=== PATIENT | female | born 2000 | race Caucasian/White ===

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

== ENCOUNTER → 2020-04-07 | Outpatient (CLI) | payer OTHER ==
--- NOTE | 2020-04-07 16:18 | RAD ---
Transabdominal and endovaginal pelvic ultrasound INDICATION: Pelvic pain for one month. LMP 03/10/2020. 19-year-old G0 TECHNIQUE: Grayscale, color and spectral Doppler imaging of the pelvic contents was performed transab dominally and endovaginally. FINDINGS: Uterus measures 6.6 x 5.2 x 3.9 cm. The endometrium measures 3 mm. The right ovary measures 3.3 x 2.0 x 1.8 cm. Normal blood flow. The left ovary measures 2.2 x 2.3 x 1.0 cm, with normal blood flow. A small amount of free fluid is present in the left adnexa. IMPRESSION: Pelvic ultrasound within normal limits. Electronically signed by: Betzaida Funes MD (04/07/2020 4:15 PM) [id number]
--- NOTE | 2020-04-07 16:20 | RAD ---
EXAM: ABDOMINAL ULTRASOUND. HISTORY: Right upper quadrant abdominal pain. History of Crohn's disease. COMPARISON: None. FINDINGS: Sonographic evaluation of the abdomen was performed. The liver appears normal in parenchymal echotexture. Measures 15 cm in length. There are no focal les ions. The spleen measures 9.8 cm. The gallbladder is unremarkable without evidence of stones, wall thickening or pericholecystic fluid. There is no sonographic Burton sign. The common duct measures 2 mm. The visualized portions of the h ead of the pancreas reveal no abnormality. The right kidney measures 9.1 x 5.1 x 3.7 cm. Cortical thickness and echogenicity are preserved. Ther e is no hydronephrosis. The left kidney measures 9.2 x 3.8 x 3.5 cm. Cortical thickness and echogenic ity are preserved. There is no hydronephrosis. The visualized portions of the abdominal aorta and inferior vena cava are grossly patent and normal i n caliber. IMPRESSION: 1. Unremarkable examination of the abdomen. Electronically signed by: Betzaida Funes MD (04/07/2020 4:18 PM) [id number]
== END ==
LOC: US 09:10
PROVIDERS: ATTEND Pediatrics
DX: K50.90 Crohn's disease, unspecified, without complications (principal); R10.2 Pelvic and perineal pain; R10.11 Right upper quadrant pain
CPT/HCPCS: 76700; 76830; 76856

== ENCOUNTER → 2020-05-03 | Outpatient (CLI) | payer OTHER ==
[2020-05-03 13:44] LABS: BASO % 1 % (0-3); EOS # 0.1 x10^3/uL (0.0-0.7); EOS % 1 % (0-3); HEMATOCRIT 37.5 % (36.0-47.0); HEMOGLOBIN 11.8 g/dL (12.0-15.5); LYMPH % 35 % (24-48); MEAN CORPUSCULAR HEMOGLOBIN 24 pg (25-35); MEAN CORPUSCULAR HGB CONC 32 g/dL (31-37); MEAN CORPUSCULAR VOLUME 76 fL (79-100); MONO # 0.6 x10^3/uL (0.0-1.1); MONO % 8 % (0-9); NEUT # 4.8 x10^3uL (1.8-7.7); NEUT % 56 % (31-73); PLATELET COUNT 275 x10^3/uL (140-400); RED BLOOD COUNT 4.93 x10^6/uL (3.50-5.40); WHITE BLOOD COUNT 8.5 x10^3/uL (4.0-11.0)
[2020-05-03 13:53] LABS: HEMOGLOBIN ISTAT 12.6 gm/dL
[2020-05-03 14:03] LABS: ALBUMIN 2.9 g/dL (3.4-5.0); C REACTIVE PROTEIN 6.3 mg/L (0-3.3); DIRECT BILIRUBIN 0.1 mg/dL (0.0-0.2); TOTAL BILIRUBIN 0.2 mg/dL (0.2-1.0); TOTAL PROTEIN 7.3 g/dL (6.4-8.2)
== END ==
LOC: LAB 13:18
PROVIDERS: ATTEND Pediatrics Pediatric Gastroenterology
DX: K50.90 Crohn's disease, unspecified, without complications (principal)
CPT/HCPCS: 80047; 80076; 85025; 86140

== ENCOUNTER 2020-07-18 09:31 | Emergency (ER) | payer OTHER ==
[~2020-07-18] VITALS: Ht 157.5 cm; Wt 55.5 kg
--- NOTE | 2020-07-18 09:43 | PHYS DOC ---
Past History Past Medical History: Arthritis, Other (crohns dz) Past Surgical History: No Surgical History Smoking: Non-smoker Alcohol Use: None Drug Use: None Adult General Chief Complaint Chief Complaint: CHEST WALL PAIN [facility] HPI Patient is a 19-year-old female presenting with cough, chest pain, and sore thro at starting approximately 2 to 3 days ago. She reports symptoms initially began with a sore throat and she developed some chest pain associated with cough approximately 2 days ago. Since symptom onset she feels like her symptoms have been worsening. For symptomatic management she has been taking [id number] "pain relief" and [employer] brand cold and flu. She reports symptoms have not improved since starting supportive care. Does report a history of rheumatoid arthritis and Crohn's disease for which she had had infusion about a week ago, does not remember the name of the medication she received. She reports no adverse reactions upon initiation of the infusion last week. Denies exertional chest pain, diaphoresis, increased lower extremity edema, periods of dyspnea, shortness of breath, and syncopal episodes. Review of Systems Review of Systems Fourteen body systems of review of systems have been reviewed. See HPI for pertinent positives and negative responses, other barnett all other systems are negative, non-pertinent or non-contributory Allergies Allergies Allergies Coded Allergies Type Severity Reaction Last Updated Verified No Known Drug Allergies 08/03/16 No Physical Exam Physical Exam Constitutional: Well developed, well nourished, no acute distress, non-toxic appearance. HENT: Normocephalic, atraumatic, bilateral external ears normal, oropharynx moist, no oral exudates, nose normal. No oropharyngeal erythema Eyes: PERRLA, EOMI, conjunctiva normal, no discharge. Neck: Normal range of motion, no tenderness, supple, no stridor. Cardiovascular:Heart rate regular rhythm, no murmur no pain on palpation of chest Lungs & Thorax: Crackles present in right lower lobe without respiratory distress, increased work of breathing or accessory muscle use Abdomen: Bowel sounds normal, soft, no tenderness, no masses, no pulsatile masses. Skin: Warm, dry, no erythema, no rash. Back: No tenderness, no CVA tenderness. Extremities: No tenderness, no cyanosis, no clubbing, ROM intact, no edema. Neurologic: Alert and oriented X 3, normal motor function, normal sensory function, no focal deficits noted. Psychologic: Affect normal, judgement normal, mood normal. Current Patient Data Vital Signs Vital Signs Date Time Temp Pulse Resp B/P (MAP) Pulse Ox O2 Delivery O2 Flow Rate FiO2 07/18/20 09:37 97.9 78 16 136/78 (97) 99 Room Air Vital Signs Date Time Temp Pulse Resp B/P (MAP) Pulse Ox O2 Delivery O2 Flow Rate FiO2 07/18/20 09:37 97.9 78 16 136/78 (97) 99 Room Air Lab Results Laboratory Tests Test 07/18/20 10:03 White Blood Count 8.9 x10^3/uL Red Blood Count 5.02 x10^6/uL Hemoglobin 11.9 g/dL Hematocrit 37.5 % Mean Corpuscular Volume 75 fL Mean Corpuscular Hemoglobin 24 pg Mean Corpuscular Hemoglobin Concent 32 g/dL Red Cell Distribution Width 16.2 % Platelet Count 304 x10^3/uL Neutrophils (%) (Auto) 54 % Lymphocytes (%) (Auto) 33 % Monocytes (%) (Auto) 11 % Eosinophils (%) (Auto) 1 % Basophils (%) (Auto) 1 % Neutrophils # (Auto) 4.8 x10^3uL Lymphocytes # (Auto) 2.9 x10^3/uL Monocytes # (Auto) 1.0 x10^3/uL Eosinophils # (Auto) 0.1 x10^3/uL Basophils # (Auto) 0.1 x10^3/uL Sodium Level 141 mmol/L Potassium Level 3.8 mmol/L Chloride Level 108 mmol/L Carbon Dioxide Level 26 mmol/L Anion Gap 7 Blood Urea Nitrogen 10 mg/dL Creatinine 0.7 mg/dL Estimated GFR (Cockcroft-Gault) 107.8 BUN/Creatinine Ratio 14 Glucose Level 93 mg/dL Calcium Level 8.6 mg/dL Total Bilirubin 0.2 mg/dL Aspartate Amino Transf (AST/SGOT) 20 U/L Alanine Aminotransferase (ALT/SGPT) 22 U/L Alkaline Phosphatase 73 U/L Total Protein 7.2 g/dL Albumin 2.9 g/dL Albumin/Globulin Ratio 0.7 Current Medications Medications (Trade) Dose Ordered Sig/Charles Route PRN Reason Start Time Stop Time Status Last Admin Dose Admin Ketorolac Tromethamine (Toradol Im) 30 mg 1X ONCE IM 07/18/20 10:00 07/18/20 10:01 DC 4/9/21 10:18 Azithromycin (Zithromax) 500 mg 1X ONCE PO 07/18/20 10:45 07/18/20 10:46 07/18/20 10:43 Azithromycin (Zithromax) 250 mg STK-MED ONCE .ROUTE 07/18/20 10:40 07/18/20 10:41 DC EKG EKG [] Radiology/Procedures Radiology/Procedures EXAM: XR CHEST 1V 07/18/2020 10:04 AM CLINICAL INDICATION: Cough, chest pain COMPARISON: Chest radiograph 08/03/2016 TECHNIQUE: AP upright view of the chest FINDINGS: The heart and mediastinum are normal. Lungs are well-expanded. There are multifocal airspace opacities in the right lung, greatest peripherally. The left lung is clear. No pleural effusion or pneumothorax. No acute osseous abnormality. IMPRESSION: Multifocal airspace opacities in the right lung consistent with pneumonia. Electronically signed by: Xuan Castro MD (07/18/2020 10:20 AM) [id number] Heart Score C/O Chest Pain: No HEART Score for Chest Pain: HEART Score for Chest Pain Response (Comments) Value History Slighlty/Non-Suspicious 0 Age < 45 0 Risk Factors No Risk Factors 0 Total 0 Risk Factors: Risk Factors: DM, Current or recent (<one month) smoker, HTN, HLP, family history of CAD, obesity. Risk Scores: Risk Factors: DM, Current or recent (<one month) smoker, HTN, HLP, family history of CAD, obesity. Course & Med Decision Making Course & Med Decision Making Patient is a 19-year-old female presenting for concerns due to possible upper respiratory infection. Vitals were within normal limits on exam and physical exam was concerning for right lower lobe crackles only. Patient was also given some Toradol and limited ER work-up performed due to immunocompromise state of having rheumatoid arthritis and Crohn's disease currently on biologic treatment. Patient's radiographs significant for right lower lobe pneumonia. Discussed findings with patient, patient has had episode of lobar pneumonia in the past that resolved with azithromycin in outpatient setting, states presenting symptoms feel similar to past episode. 500 mg azithromycin administered while in ER, subsequent prescription and patient education on said antibiotic given. Patient has good access to care with broadcast director operations, advised her to call to schedule outpatient follow-up within upcoming 1 to 5 days time. Strict return precautions were discussed with good understanding by patient, all questions and concerns addressed prior to ER departure in stable condition Tanvi Disclaimer Tanvi Disclaimer This electronic medical record was generated, in whole or in part, using a voice recognition dictation system. Departure Departure: Impression: Primary Impression: Right lower lobe pneumonia Additional Impression: History of Crohn's disease Disposition: 01 DC HOME SELF CARE/HOMELESS Condition: STABLE Referrals: TANESHA UGALDE MD (PCP) Patient Instructions: Pneumonia, Adult Additional Instructions: You were seen for cough. Your ER work-up was remarkable for findings consistent of right lower lobe pneumonia on chest x-ray. Your remaining vital signs and lab work were unremarkable. You were given a dose of azithromycin, and antibiotic medication that has also been prescribed to you on ER departure. Be sure you take this as described to completion. It will be important that you follow up with your primary doctor/heating and ventilating tender after this ED visit, especially because you suffer from an immunocompromising condition. Return to the ED if you develop worsening cough, shortness of breath, fever > 101, chest pain, or a ny other new or concerning symptoms. Scripts Azithromycin (AZITHROMYCIN TABLET) 250 Mg Tablet 250 MG PO DAILY for ANTI-BIOTIC for 4 Days, #4 TAB 0 Refills Prov: LENO GILBERT DO 07/18/20 Problem Qualifiers LENO GILBERT DO Jul 18, 2020 09:43
[2020-07-18] MEDS ORDERED: KETOROLAC 60 MG/2 ML VIAL. IM ONE (10:00)
[2020-07-18 10:21] LABS: BASO # 0.1 x10^3/uL (0.0-0.2); BASO % 1 % (0-3); EOS # 0.1 x10^3/uL (0.0-0.7); EOS % 1 % (0-3); HEMATOCRIT 37.5 % (36.0-47.0); HEMOGLOBIN 11.9 g/dL (12.0-15.5); LYMPH # 2.9 x10^3/uL (1.0-4.8); LYMPH % 33 % (24-48); MEAN CORPUSCULAR HEMOGLOBIN 24 pg (25-35); MEAN CORPUSCULAR HGB CONC 32 g/dL (31-37); MEAN CORPUSCULAR VOLUME 75 fL (79-100); MONO % 11 % (0-9); NEUT # 4.8 x10^3uL (1.8-7.7); NEUT % 54 % (31-73); PLATELET COUNT 304 x10^3/uL (140-400); RED BLOOD COUNT 5.02 x10^6/uL (3.50-5.40); RED CELL DISTRIBUTION WIDTH 16.2 % (11.5-14.5); WHITE BLOOD COUNT 8.9 x10^3/uL (4.0-11.0)
--- NOTE | 2020-07-18 10:23 | RAD ---
EXAM: XR CHEST 1V 07/18/2020 10:04 AM CLINICAL INDICATION: Cough, chest pain COMPARISON: Chest radiograph 08/03/2016 TECHNIQUE: AP upright view of the chest FINDINGS: The heart and mediastinum are normal. Lungs are well-expanded. There are multifocal airspa ce opacities in the right lung, greatest peripherally. The left lung is clear. No pleural effusion or pneumothorax. No acute osseous abnormality. IMPRESSION: Multifocal airspace opacities in the right lung consistent with pneumonia. Electronically signed by: Xuan Castro MD (07/18/2020 10:20 AM) [id number]
[2020-07-18 10:28] LABS: CALCIUM 8.6 mg/dL (8.5-10.1); CREATININE 0.7 mg/dL (0.6-1.0); GFR 107.8; POTASSIUM 3.8 mmol/L (3.5-5.1)
[2020-07-18 10:34] LABS: ALBUMIN 2.9 g/dL (3.4-5.0); ALBUMIN/GLOBULIN RATIO 0.7 (1.0-1.7); TOTAL BILIRUBIN 0.2 mg/dL (0.2-1.0); TOTAL PROTEIN 7.2 g/dL (6.4-8.2)
[2020-07-18 10:36] VITALS: BP 128/71
[2020-07-18] MEDS ORDERED: AZIT250T6 PO (10:37)
[2020-07-18] MEDS ORDERED: AZITHROMYCIN 250 MG TABLET. ONE (10:40)
[2020-07-18] MEDS ORDERED: AZITHROMYCIN 250 MG TABLET. PO ONE (10:45)
== END 2020-07-18 10:52 | disposition home or self-care (01) ==
LOC: ER 09:31
DX: J18.9 Pneumonia, unspecified organism (principal); K50.90 Crohn's disease, unspecified, without complications
CPT/HCPCS: 36415; 71045; 80053; 85025; 96372; 99284; J1885; 99283

== ENCOUNTER → 2020-11-03 | Outpatient (CLI) | payer OTHER ==
[~2020-11-03] MED LIST changes: +AZIT250T6 PO
== END ==
LOC: LAB 15:16
PROVIDERS: ATTEND Internal Medicine Cardiovascular Disease
DX: Z20.822 Contact with and (suspected) exposure to COVID-19 (principal); K50.90 Crohn's disease, unspecified, without complications; M06.9 Rheumatoid arthritis, unspecified
CPT/HCPCS: U0003

== ENCOUNTER → 2020-11-16 | Outpatient (CLI) | payer OTHER | LOC: LAB 09:00 | PROVIDERS: ATTEND Internal Medicine Cardiovascular Disease | DX: Z20.822 Contact with and (suspected) exposure to COVID-19 (principal) | CPT/HCPCS: C9803; U0003 ==

== ENCOUNTER → 2020-11-25 | Outpatient (CLI) | payer OTHER | LOC: LAB 14:00 | PROVIDERS: ATTEND Internal Medicine Cardiovascular Disease | DX: Z20.822 Contact with and (suspected) exposure to COVID-19 (principal) | CPT/HCPCS: C9803; U0003 ==

== ENCOUNTER → 2020-12-11 | Outpatient (CLI) | payer OTHER | LOC: LAB 10:54 | PROVIDERS: ATTEND Internal Medicine Cardiovascular Disease | DX: R05 Cough (principal); J02.9 Acute pharyngitis, unspecified; Z20.822 Contact with and (suspected) exposure to COVID-19 | CPT/HCPCS: U0003 ==

== ENCOUNTER → 2020-12-31 | Outpatient (CLI) | payer OTHER | LOC: LAB 08:00 | PROVIDERS: ATTEND Internal Medicine Cardiovascular Disease | DX: Z20.822 Contact with and (suspected) exposure to COVID-19 (principal) | CPT/HCPCS: U0003 ==

== ENCOUNTER → 2021-01-07 | Outpatient (CLI) | payer OTHER | LOC: LAB 08:00 | PROVIDERS: ATTEND Internal Medicine Cardiovascular Disease | DX: Z20.822 Contact with and (suspected) exposure to COVID-19 (principal) | CPT/HCPCS: U0003 ==

== ENCOUNTER → 2021-01-13 | Outpatient (CLI) | payer OTHER | LOC: LAB 08:53 | PROVIDERS: ATTEND Internal Medicine Cardiovascular Disease | DX: R09.81 Nasal congestion (principal); Z20.822 Contact with and (suspected) exposure to COVID-19 | CPT/HCPCS: U0003 ==

== ENCOUNTER → 2021-01-21 | Outpatient (CLI) | payer OTHER | LOC: LAB 07:02 | PROVIDERS: ATTEND Internal Medicine Cardiovascular Disease | DX: Z20.822 Contact with and (suspected) exposure to COVID-19 (principal) | CPT/HCPCS: U0003 ==

== ENCOUNTER → 2021-01-29 | Outpatient (CLI) | payer OTHER | LOC: LAB 07:35 | PROVIDERS: ATTEND Internal Medicine Cardiovascular Disease | DX: Z20.822 Contact with and (suspected) exposure to COVID-19 (principal) | CPT/HCPCS: U0003 ==

== ENCOUNTER 2021-02-02 09:30 | Emergency (ER) | payer OTHER ==
[~2021-02-02] VITALS: Ht 157.5 cm; Wt 51.0 kg
[2021-02-02] MEDS ORDERED: ONDANSETRON PF 4 MG/2 ML VIAL. IVP ONE (09:45)
[2021-02-02] MEDS ORDERED: IV NORMAL SALINE 1,000ML 1,000 ML IV SCH (09:45)
--- NOTE | 2021-02-02 09:50 | PHYS DOC ---
Past History Past Medical History: Arthritis, Other Additional Past Medical Histor: chrons (ERLIN VENEGAS APRN) Past Surgical History: No Surgical History (ERLIN VENEGAS APRN) Smoking: Non-smoker Alcohol Use: None Drug Use: None (ERLIN VENEGAS APRN) General Adult EDM: Chief Complaint: ABDOMINAL PAIN HPI: HPI: Patient is a 20-year-old female who presents to the emergency department today for multiple complaints consisting of nausea, vomiting, diarrhea and umbilical abdominal pain. Patient reports that her symptoms started this morning. She rates her pain 8 out of 10. It does not radiate. No alleviating factors. Patient has a history of Crohn's and she receives monthly infusions. She is also on MiraLAX daily. Patient reports that she vomited 5 times today. She states that she had a positive Covid exposure at work. She denies any fevers, travel, dysuria, urinary frequency or urgency, blood in her stools or vomit. Patient reports that this does not feel like her typical Crohn's symptoms as she usually does not vomit with Crohn's. (ERLIN VENEGAS APRN) Review of Systems: Review of Systems: 14 body systems of the review of systems have been reviewed. See HPI for pertinent positive and negative responses, otherwise all other systems are negative, nonpertinent or noncontributory (ERLIN VENEGAS APRN) Allergies: Allergies: Allergies Coded Allergies Type Severity Reaction Last Updated Verified No Known Drug Allergies 08/03/16 No (ERLIN VENEGAS APRN) Physical Exam: PE: Constitutional: Well developed, well nourished, no acute distress, non-toxic appearance. [] HENT: Normocephalic, atraumatic, bilateral external ears normal, oropharynx moist, no oral exudates, nose normal. [] Eyes: PERRL, EOMI, conjunctiva normal, no discharge. [] Neck: Normal range of motion, no tenderness, supple, no stridor. [] Cardiovascular:Heart rate tachycardic rhythm, no murmur [] Lungs & Thorax: Bilateral breath sounds clear to auscultation [] Abdomen: Bowel sounds normal, soft, tenderness with palpation noted to bilateral lower abdomen, no rebound tenderness, negative Rovsing sign, negative Burton sign, no masses, no pulsatile masses. [] Skin: Warm, dry, no erythema, no rash. [] Back: No tenderness, no CVA tenderness. [] Extremities: No tenderness, no cyanosis, no clubbing, ROM intact, no edema. [] Neurologic: Alert and oriented X 3, normal motor function, normal sensory f unction, no focal deficits noted. [] Psychologic: Affect normal, judgement normal, mood normal. [] (ERLIN VENEGAS APRN) Current Patient Data: Labs: Laboratory Tests Test 02/02/21 09:55 02/02/21 10:00 02/02/21 10:10 Urine Collection Type U cath Urine Color Yellow Urine Clarity Hazy Urine pH 5.5 Urine Specific [place] 1.025 Urine Protein 30 mg/dl Urine Glucose (UA) Neg mg/dL Urine Ketones (Stick) 15 mg/dL Urine Blood Neg Urine Nitrite Neg Urine Bilirubin Small Urine Urobilinogen Dipstick 0.2 mg/dL Urine Leukocyte Esterase Neg Urine RBC Occ /HPF Urine WBC 1-4 /HPF Urine Squamous Epithelial Cells Many /LPF Urine Transitional Epithelial Cells Few /LPF Urine Bacteria 0 /HPF Urine Mucus Mod /LPF White Blood Count 15.6 x10^3/uL Red Blood Count 5.77 x10^6/uL Hemoglobin 13.7 g/dL Hematocrit 43.2 % Mean Corpuscular Volume 75 fL Mean Corpuscular Hemoglobin 24 pg Mean Corpuscular Hemoglobin Concent 32 g/dL Red Cell Distribution Width 16.7 % Platelet Count 258 x10^3/uL Neutrophils (%) (Auto) 82 % Lymphocytes (%) (Auto) 11 % Monocytes (%) (Auto) 7 % Eosinophils (%) (Auto) 1 % Basophils (%) (Auto) 0 % Neutrophils # (Auto) 12.7 x10^3uL Lymphocytes # (Auto) 1.7 x10^3/uL Monocytes # (Auto) 1.0 x10^3/uL Eosinophils # (Auto) 0.1 x10^3/uL Basophils # (Auto) 0.0 x10^3/uL Platelet Estimate Pending Sodium Level 138 mmol/L Potassium Level 4.1 mmol/L Chloride Level 102 mmol/L Carbon Dioxide Level 24 mmol/L Anion Gap 12 Blood Urea Nitrogen 13 mg/dL Creatinine 0.7 mg/dL Estimated GFR (Cockcroft-Gault) 106.7 BUN/Creatinine Ratio 19 Glucose Level 108 mg/dL Calcium Level 9.4 mg/dL Total Bilirubin 0.5 mg/dL Aspartate Amino Transf (AST/SGOT) 16 U/L Alanine Aminotransferase (ALT/SGPT) 22 U/L Alkaline Phosphatase 88 U/L Total Protein 9.1 g/dL Albumin 4.4 g/dL Albumin/Globulin Ratio 0.9 Lipase 143 U/L Bedside Urine HCG, Qualitative hcg negative Current Medications Medications (Trade) Dose Ordered Sig/Charles Route PRN Reason Start Time Stop Time Status Last Admin Dose Admin Sodium Chloride 1,000 ml @ 1,000 mls/hr Q1H IV 02/02/21 09:45 02/02/21 10:44 DC 02/02/21 10:27 Ondansetron HCl (Zofran) 4 mg 1X ONCE IVP 02/02/21 09:45 02/02/21 09:50 DC 02/02/21 10:27 Fentanyl Citrate (Fentanyl 2ml Vial) 50 mcg 1X ONCE IVP 02/02/21 09:45 02/02/21 09:50 DC 02/02/21 10:28 Iohexol (Omnipaque 300 Mg/ml) 75 ml 1X ONCE IV 02/02/21 10:00 02/02/21 10:01 DC 02/02/21 10:14 (ERLIN VENEGAS CHEMISTRY TECHNICAL OFFICER) EKG: EKG: [] EKG performed by ER staff at shows sinus tachycardia with a rate of 106, QTC 440, no STEMI read by Dr. Gilbert at 1006 (ERLIN VENEGAS APRN) Radiology/Procedures: Radiology/Procedures: []PROCEDURE: CT ABD PELV W/ IV CONTRST ONLY INDICATION: Reason: umbillical abdominal pain,nausea/vomiting, diarrhea, PUI / Spl. Instructions: / History: COMPARISON: Ultrasound from March 2020 TECHNIQUE: Axial CT images were obtained through the abdomen and pelvis with intravenous contrast. One or more of the following individualized dose reduction techniques were utilized for this examination: 1. Automated exposure control; 2. Adjustment of the mA and/or kV according to patient size; 3. Use of iterative reconstruction technique. FINDINGS: Vascular: No abdominal aortic aneurysm. Hepatobiliary: Liver is mildly low density. Nonspecific but can be seen with fatty infiltration. Pancreas: No peripancreatic edema. Spleen: Spleen unremarkable. Renal/Bladder: No hydronephrosis. Urinary bladder is decompressed. Gastrointestinal: There is suspected wall thickening of the distal ileum with mucosal hyperenhancement and irregularity of the wall. Mildly prominent lymph nodes in the area. The possible appendix is partially seen without adjacent inflammatory changes. Scattered mildly prominent lymph nodes. IMPRESSION: * Wall thickening of the terminal ileum with hyperenhancement and mucosal irregularity. Could be from causes such as inflammatory bowel disease such as Crohn's. Alternative causes would include infectious etiology. There are some adjacent probably reactive lymph nodes. Electronically signed by: Ramon Jones MD (02/02/2021 10:36 AM) DESKTOP- [id number] DICTATED AND SIGNED BY: RAMON JONES MD DATE: 02/02/21 1023 CC: ERLIN VENEGAS APRN; PCP,NO ~MTH0 0 (ERLIN VENEGAS APRN) Heart Score: C/O Chest Pain: N/A Risk Factors: Risk Factors: DM, Current or recent (<one month) smoker, HTN, HLP, family history of CAD, obesity. Risk Scores: Score 0 - 3: 2.5% MACE over next 6 weeks - Discharge Home Score 4 - 6: 20.3% MACE over next 6 weeks - Admit for Clinical Observation Score 7 - 10: 72.7% MACE over next 6 weeks - Early Invasive Strategies (ERLIN VENEGAS APRN) Course & Med Decision Making: Course & Med Decision Making Pertinent Labs and Imaging studies reviewed. (See chart for details) [] Patient presents to the emergency department for nausea, vomiting, diarrhea and umbilical/lower abdominal pain. Work-up in the ER consisted of blood work, urinalysis, Covid testing, CT scan of abdomen and pelvis as patient has a history of Crohn's. Treatment consisted of IV fluids as patient was tachycardic, nausea medication and pain medication. Patient be notified of the test and they become available in approximately [address] imaging of abdomen pelvis shows wall thickening indicating Crohn's cannot rule out infectious etiology and reactive lymph nodes. Patient's white blood cell count was 15.6 likely due to vomiting. Patient's urinalysis is mostly unremarkable, there was no bacteria, 1-4 white blood cell count but many epithelial cells indicating contamination. Patient be discharged home with nausea medication and antibiotic. Patient advised to follow-up with her primary care provider which manages her Crohn's. Patient's vital signs are stable and her tachycardia has improved. Patient p.o. challenge in the emergency department is able to tolerate oral fluids. I discussed with patient all findings and diagnostic testing as well as the need to follow-up with PCP for further evaluation and treatment or return to the ER if any new or worsening symptoms. Strict return precautions were also discussed at length. Patient voiced understanding and agreement with the plan. Patient is hemodynamically stable at the time of disposition. (ERLIN VENEGAS APRN) Course & Med Decision Making I was the Attending physician on the above date of service of this patient. This patient was evaluated, examined, treated, and dispositioned from the emergency department by the mid-level practitioner. Although I was working at the time , no assistance was requested. Electronically signed, Leno Gilbert DO (LENO IGLBERT DO) Tanvi Disclaimer: Tanvi Disclaimer: This electronic medical record was generated, in whole or in part, using a voice recognition dictation system. (ERLIN VENEGAS APRN) Departure Departure: Impression: Primary Impression: Nausea & vomiting Qualified Codes: R11.2 - Nausea with vomiting, unspecified Disposition: HOME / SELF CARE / HOMELESS Condition: GOOD Referrals: PCP,NO (PCP) Patient Instructions: Nausea and Vomiting Additional Instructions: You are seen in the emergency department today for nausea, vomiting, diarrhea a nd abdominal pain. As we discussed, your CT scan of your abdomen shows some wall thickening of your colon which may indicate Crohn's but we could not rule out an infectious etiology. Therefore we will be starting you on an antibiotic. Please start and finish it completely. Do not drink any alcohol with these medications as it will cause severe vomiting. You are also being discharged home with medication for nausea vomiting, please take this as directed. Increase your fluids. Please avoid eating any spicy, greasy or fatty foods. Please follow-up with your primary care provider who manages your Crohn's treatment. You were tested in the emergency department today for COVID-19. You will be notified of those results when they become available in approximately 2 days. Please self isolate until you receive these results. I would advise you to follow-up with your primary care provider tomorrow. Return to the emergency department if you develop worsening of your abdominal pain, intractable nausea or vomiting, high fevers refractory to treatment, chest pain, shortness of breath blood in your stools or vomit, lightheadedness. EMERGENCY DEPARTMENT GENERAL DISCHARGE INSTRUCTIONS Thank you for coming to [facility] (ED) today and trusting us with you care. We trust that you had a positivie experience in our Emergency Department. If you wish to speak to the department management, you may call the director at [phone]. YOUR FOLLOW UP INSTRUCTIONS ARE FOLLOWS: 1. Do you have a private Doctor? If you do not have a private doctor, please ask for a resource list of physicians or clinics that may be able to assist you with follow up care. 2. The Emergency Physician has interpreted your x-rays. The X-Ray specialist will also review them. If there is a change in the findings, you will be notified in 48 hours when at all possible. 3. A lab test or culture has been done, your results will be reviewed and you will be notified if you need a change in treatment. ADDITIONAL INSTRUCTIONS AND INFORMATION: 1. Your care today has been supervised by a physician who is specially trained in emergency care. Many problems require more than one evaluation for a complete diagnosis and treatment. We recommend that you schedule your follow up appointment as recommended to ensure complete treatment of you illness or injury. If you are unable to obtain follow up care and continue to have a problem, or if your condition worsens, we recommend that you return to the ED. 2. We are not able to safely determine your condition over the phone nor are we able to give sound medical advice over the phone. For these safety reasons, if you call for medical advice we will ask you to come to the ED for further evaluation. 3. If you have any questions regarding these discharge instructions please call the ED at [phone]. SAFETY INFORMATION: In the interest of safety, wellness, and injury prevention; we encourage you to wear your sealbelt, if you smoke; quite smoking, and we encourage family to use a protective helmet for bicycling and other sporting events that present an increased risk for head injury. IF YOUR SYMPTOMS WORSEN OR NEW SYMPTOMS DEVELOP, OR YOU HAVE CONCERNS ABOUT YOUR CONDITION; OR IF YOUR CONDITION WORSENS WHILE YOU ARE WAITING FOR YOUR FOLLOW UP APPOINTMENT; EITHER CONTACT YOUR PRIMARY CARE DOCTOR, THE PHYSICIAN WHOSE NAME AND NUMBER YOU WERE Torey RIRI, OR RETURN TO THE ED IMMEDIATELY. Scripts Ondansetron (ONDANSETRON ODT) 4 Mg Tab.rapdis 1 TAB PO PRN Q6-8HRS for nausea for 2 Days, #8 TAB 0 Refills Prov: ERLIN VENEGAS APRN 02/02/21 Metronidazole (METRONIDAZOLE) 500 Mg Tablet 1 TAB PO TID for infection for 10 Days, #30 TAB 0 Refills Prov: ERLIN VENEGAS APRN 02/02/21 Ciprofloxacin Hcl (CIPROFLOXACIN HCL) 500 Mg Tablet 1 TAB PO BID for infection for 10 Days, #20 TAB 0 Refills Prov: ERLIN VENEGAS APRN 02/02/21 ERLIN VENEGAS APRN Feb 02, 2021 09:50 LENO GILBERT DO Feb 02, 2021 17:17
[2021-02-02] MEDS ORDERED: IOHEXOL 300 MG/ML 75 ML VIAL. IV ONE (10:00)
[2021-02-02 10:24] LABS: BASO % 0 % (0-3); EOS # 0.1 x10^3/uL (0.0-0.7); EOS % 1 % (0-3); HEMATOCRIT 43.2 % (36.0-47.0); HEMOGLOBIN 13.7 g/dL (12.0-15.5); LYMPH # 1.7 x10^3/uL (1.0-4.8); LYMPH % 11 % (24-48); MEAN CORPUSCULAR HEMOGLOBIN 24 pg (25-35); MEAN CORPUSCULAR HGB CONC 32 g/dL (31-37); MEAN CORPUSCULAR VOLUME 75 fL (79-100); MONO % 7 % (0-9); NEUT # 12.7 x10^3uL (1.8-7.7); NEUT % 82 % (31-73); PLATELET COUNT 258 x10^3/uL (140-400); RED BLOOD COUNT 5.77 x10^6/uL (3.50-5.40); RED CELL DISTRIBUTION WIDTH 16.7 % (11.5-14.5); WHITE BLOOD COUNT 15.6 x10^3/uL (4.0-11.0)
[2021-02-02 10:32] LABS: CALCIUM 9.4 mg/dL (8.5-10.1); CREATININE 0.7 mg/dL (0.6-1.0); GFR 106.7; POTASSIUM 4.1 mmol/L (3.5-5.1)
[2021-02-02 10:32] LABS: BACTERIA,URINE 0 /HPF (0-FEW); BILIRUBIN,URINE SMALL (NEG); CLARITY,URINE HAZY; COLOR,URINE YELLOW; GLUCOSE,URINE NEG (NEG); NITRITE,URINE NEG (NEG); RBC,URINE OCC /HPF (0-2); SQUAMOUS EPITHELIAL CELL,UR MANY /LPF; UROBILINOGEN,URINE 0.2 mg/dL (0.2 mg/dL)
[2021-02-02 10:38] LABS: ALBUMIN 4.4 g/dL (3.4-5.0); ALBUMIN/GLOBULIN RATIO 0.9 (1.0-1.7); TOTAL BILIRUBIN 0.5 mg/dL (0.2-1.0); TOTAL PROTEIN 9.1 g/dL (6.4-8.2)
--- NOTE | 2021-02-02 10:39 | RAD ---
INDICATION: Reason: umbillical abdominal pain,nausea/vomiting, diarrhea, PUI / Spl. Instructions: / History: COMPARISON: Ultrasound from March 2020 TECHNIQUE: Axial CT images were obtained through the abdomen and pelvis with intravenous contrast. One or more of the following individualized dose reduction techniques were utilized for this examinat ion: 1. Automated exposure control; 2. Adjustment of the mA and/or kV according to patient size; 3 . Use of iterative reconstruction technique. FINDINGS: Vascular: No abdominal aortic aneurysm. Hepatobiliary: Liver is mildly low density. Nonspecific but can be seen with fatty infiltration. Pancreas: No peripancreatic edema. Spleen: Spleen unremarkable. Renal/Bladder: No hydronephrosis. Urinary bladder is decompressed. Gastrointestinal: There is suspected wall thickening of the distal ileum with mucosal hyperenhancemen t and irregularity of the wall. Mildly prominent lymph nodes in the area. The possible appendix is pa rtially seen without adjacent inflammatory changes. Scattered mildly prominent lymph nodes. IMPRESSION: * Wall thickening of the terminal ileum with hyperenhancement and mucosal irregularity. Could be fr om causes such as inflammatory bowel disease such as Crohn's. Alternative causes would include infect ious etiology. There are some adjacent probably reactive lymph nodes. Electronically signed by: Shankar Martinez MD (02/02/2021 10:36 AM) DESKTOP-[id number]
--- NOTE | 2021-02-02 10:44 | EKG ---
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
[2021-02-02 10:50] VITALS: BP 125/74
[2021-02-02] MEDS ORDERED: CIPR500T2 PO (10:59)
[2021-02-02] MEDS ORDERED: METR-34 PO (10:59)
[2021-02-02] MEDS ORDERED: ONDA4TAB12 PO (11:02)
[2021-02-02 13:42] LABS: % ATYL 1 % (0-0); % BANDS 18 % (0-9); % LYMPHS 13 % (24-48); % MONOS 9 % (0-10); % SEGS 59 % (35-66); HYPOCHROMIA PRESENT
[2021-02-02 13:46] LABS: OVALOCYTES PRESENT
[2021-02-02 13:47] LABS: PLT ESTIMATE ADEQUATE (ADEQUATE)
== END 2021-02-02 11:25 | disposition home or self-care (01) ==
LOC: ER 09:30
DX: R11.2 Nausea with vomiting, unspecified (principal); R19.7 Diarrhea, unspecified; R10.33 Periumbilical pain; M19.90 Unspecified osteoarthritis, unspecified site; Z20.822 Contact with and (suspected) exposure to COVID-19
CPT/HCPCS: 36415; 74177; 80053; 81001; 81025; 83690; 85007; 85025; 93005; 96361; 96374; 96375; 99285; C9803; J2405; J3010; J7030; Q9967; U0003

== ENCOUNTER → 2021-02-12 | Outpatient (CLI) | payer OTHER ==
[2021-02-02 10:50] VITALS: BP 125/74
[~2021-02-12] MED LIST changes: +CIPR500T2 PO; +METR-34 PO; +ONDA4TAB12 PO
== END ==
LOC: LAB 08:00
PROVIDERS: ATTEND Internal Medicine Cardiovascular Disease
DX: Z20.822 Contact with and (suspected) exposure to COVID-19 (principal)
CPT/HCPCS: U0003

== ENCOUNTER → 2021-02-24 | Outpatient (CLI) | payer OTHER ==
[2021-02-02 10:50] VITALS: BP 125/74
== END ==
LOC: LAB 06:51
PROVIDERS: ATTEND Internal Medicine Cardiovascular Disease
DX: Z20.822 Contact with and (suspected) exposure to COVID-19 (principal)
CPT/HCPCS: U0003

== ENCOUNTER → 2021-03-03 | Outpatient (CLI) | payer OTHER ==
[2021-02-02 10:50] VITALS: BP 125/74
== END ==
LOC: LAB 09:00
PROVIDERS: ATTEND Internal Medicine Cardiovascular Disease
DX: Z20.822 Contact with and (suspected) exposure to COVID-19 (principal)
CPT/HCPCS: C9803; U0003

== ENCOUNTER → 2021-03-10 | Outpatient (CLI) | payer OTHER | LOC: LAB 10:32 | PROVIDERS: ATTEND Internal Medicine Cardiovascular Disease | DX: Z20.822 Contact with and (suspected) exposure to COVID-19 (principal) | CPT/HCPCS: U0003 ==

== ENCOUNTER → 2021-03-17 | Outpatient (CLI) | payer OTHER | LOC: LAB 07:00 | PROVIDERS: ATTEND Internal Medicine Cardiovascular Disease | DX: Z20.822 Contact with and (suspected) exposure to COVID-19 (principal) | CPT/HCPCS: U0003 ==

== ENCOUNTER 2021-03-24 22:31 | Emergency (ER) | payer OTHER ==
[~2021-03-24] VITALS: Ht 157.5 cm; Wt 53.8 kg
--- NOTE | 2021-03-24 22:58 | PHYS DOC ---
Past History Past Medical History: Arthritis, Other Additional Past Medical Histor: crohn's disease Past Surgical History: No Surgical History Smoking: Non-smoker Alcohol Use: None Drug Use: None General Adult EDM: Chief Complaint: ABDOMINAL PAIN HPI: HPI: "... I have been having really bad abdomen pain here on the right today.... 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 Patient reports movement exacerbates pain in right lower quadrant. Patient has not had any intake bad food. Patient does have a history of Crohn's colitis. No history of trauma. No history of travel. Is exposed to ill patients on the mental health unit at [facility]. Patient does have history of a past infection of gonorrhea and chlamydia which was treated. Follow-up with treatment showed it had cleared. Patient denies any history immunosuppression. Patient has had history of possible ovarian cyst. Her periods are sometimes are somewhat irregular. Patient has recently went off control. Patient has had flu vaccination for employment here at [facility]. The patient has not completed COVID vaccination. Review of Systems: Review of Systems: Constitutional: Denies fever or chills Eyes: Denies change in visual acuity HENT: Denies nasal congestion or sore throat Respiratory: Denies cough or shortness of breath Cardiovascular: Denies chest pain or edema GI: Complains of mid and right lower quadrant abdominal pain, nausea. Denies, vomiting, bloody stools or diarrhea : Denies dysuria Musculoskeletal: Denies back pain or joint pain Integument: Denies rash Neurologic: Denies headache, focal weakness or sensory changes Endocrine: Denies polyuria or polydipsia Lymphatic: Denies swollen glands Psychiatric: Denies depression or anxiety Family History: Family History: Noncontributory to presentation Current Medications: Current Meds: See nursing for home meds Allergies: Allergies: Allergies Coded Allergies Type Severity Reaction Last Updated Verified No Known Drug Allergies 08/03/16 No Physical Exam: PE: Constitutional: Well developed, well nourished, moderate acute distress, rates her abdomen pain 5 out of 10, non-toxic appearance. [] HENT: Normocephalic, atraumatic, bilateral external ears normal, oropharynx moist, no oral exudates, nose normal. [] Eyes: PERRLA, EOMI, conjunctiva normal, no discharge. [] Neck: Normal range of motion, no tenderness, supple, no stridor. [] Cardiovascular:Heart rate regular rhythm, no murmur [] Lungs & Thorax: Bilateral breath sounds clear to auscultation [] Abdomen: Bowel sounds decreased, soft, right lower quadrant tenderness, no masses, no pulsatile masses. [] Decline pelvic exam at this time. Skin: Warm, dry, no erythema, no rash. [] Back: No tenderness, no CVA tenderness. [] Extremities: No tenderness, no cyanosis, no clubbing, ROM intact, no edema. [] Mild psoas sign on jumping up and down. No cording. Neurologic: Alert and oriented X 3, normal motor function, normal sensory function, no focal deficits noted. [] Psychologic: Affect anxious, judgement normal, mood normal. [] Current Patient Data: Labs: Laboratory Tests Test 03/24/21 22:49 POC Urine HCG, Qualitative hcg negative (Negative) Vital Signs: Vital Signs Date Time Temp Pulse Resp B/P (MAP) Pulse Ox O2 Delivery O2 Flow Rate FiO2 03/24/21 22:49 98.2 74 18 116/64 (81) 95 Room Air EKG: EKG: [] Radiology/Procedures: Radiology/Procedures: [address] [address] IMAGING REPORT Signed PATIENT: BRADY ALEMAN NACCOUNT: [id number] : 2000 LOCATION: ER AGE: 20 SEX: F EXAM STATUS: REG ER ORD. PHYSICIAN: RO TAYLOR MD REASON: Rt., lower abd pain Omni 300 75cc PROCEDURE: CT ABD PELV W/ORAL&IV CONTRAST CT ABDOMEN+PELVIS W History: Rt., lower abd pain Comparison: 02/02/2021 Technique: After administration of intravenous contrast, helical CT of the abdomen and pelvis was performed from the lung bases through the ischial tuberosities. Coronal and sagittal reconstructions were obtained. 75 mL of Omnipaque 300 were used. One or more of the following dose reduction techniques were utilized: Automated exposure control (AEC), Adjustment of mA and/or kV according to patient size, Use of iterative reconstruction technique such as ASiR, CT scan done according to ALARA and image gently/image wisely Abdomen Findings: The visualized lung bases are clear. The liver, gallbladder, pancreas, spleen, and bilateral adrenal glands are normal. Symmetric renal enhancement. Nonobstructive right renal 2 mm calculus. There is no hydronephrosis. The visualized loops of small bowel are normal. The visualized loops of large bowel are normal. There is no evidence of bowel obstruction. Appendix is normal. There is no mesenteric or retroperitoneal adenopathy. The abdominal aorta is normal in caliber. Pelvis Findings: Urinary bladder is normal. Retroflexed uterus. Conspicuous right adnexal probable corpus luteal cyst with moderate intermediate density fluid around the right adnexa and within the pelvis. There is no pelvic or inguinal adenopathy. There is no acute bony abnormality. IMPRESSION: Conspicuous right adnexal probable corpus luteal cyst with moderate amount of complex fluid around the right adnexa and within the pelvis. Consider ruptured ovarian cyst. Electronically signed by: Jimmy Tamez MD (03/25/2021 1:07 AM) [facility] DICTATED AND SIGNED BY: JIMMY TAMEZ MD DATE: 03/25/2199 CC: RO TAYLOR MD; TANESHA UGALDE MD ~MTH0 0 [][place] [address] IMAGING REPORT Signed PATIENT: BRADY ALEMAN NACCOUNT: [id number] : 2000 LOCATION: ER AGE: 20 SEX: F EXAM STATUS: REG ER ORD. PHYSICIAN: RO TAYLOR MD REASON: Abdomen pain PROCEDURE: ACUTE ABDOMEN SERIES XR ABDOMEN COMP ACUTE INDICATION: Abdomen pain COMPARISON STUDY: None. FINDINGS: Lungs: Normal lung volume. No pulmonary mass or consolidation. The tracheobronchial tree and hilar structures are normal. Pleura: No pleural effusion or pneumothorax. Heart and Mediastinum: The cardiomediastinal silhouette is normal. The great vessels of the thorax are normal. Abdomen: Nonobstructive bowel gas pattern. No free air. Moderate colonic stool burden. IMPRESSION: 1. No focal airspace disease. 2. Nonobstructive bowel gas pattern. 3. Moderate colonic stool burden. Electronically signed by: Jimmy Tamez MD (03/24/2021 11:53 PM) [facility] DICTATED AND SIGNED BY: JIMMY TAMEZ MD DATE: 03/24/21 4632 CC: RO TAYLOR MD; TANESHA UGALDE MD ~MTH0 0 Heart Score: C/O Chest Pain: N/A Risk Factors: Risk Factors: DM, Current or recent (<one month) smoker, HTN, HLP, family history of CAD, obesity. Risk Scores: Score 0 - 3: 2.5% MACE over next 6 weeks - Discharge Home Score 4 - 6: 20.3% MACE over next 6 weeks - Admit for Clinical Observation Score 7 - 10: 72.7% MACE over next 6 weeks - Early Invasive Strategies Course & Med Decision Making: Course & Med Decision Making Pertinent Labs and Imaging studies reviewed. (See chart for details) Impression: 1. Abdomen pain 2. Constipation 3. Suspect Ruptured Ovarian Cyst 4. Hx. of Crohn's-inflammatory bowel disorder [] Dragon Disclaimer: Tanvi Disclaimer: This electronic medical record was generated, in whole or in part, using a voice recognition dictation system. Departure Departure: Referrals: TANESHA UGALDE MD (PCP) Tanvi Disclaimer This chart was dictated in whole or in part using Voice Recognition software in a busy, high-work load, and often noisy Emergency Department environment. It may contain unintended and wholly unrecognized errors or omissions. RO TAYLOR MD Mar 24, 2021 22:58
[2021-03-24] MEDS ORDERED: FAMOTIDINE 20 MG/2 ML VIAL IVP ONE (23:15)
[2021-03-24] MEDS ORDERED: IV RINGERS SOLUTION,LACTATED 1,000 ML IV SCH (23:15)
[2021-03-24] MEDS ORDERED: ONDANSETRON PF 4 MG/2 ML VIAL. IVP ONE (23:15)
[2021-03-24] MEDS ORDERED: IOHEXOL 240 MG/ML 50ML VIAL. ONE (23:28)
[2021-03-24] MEDS ORDERED: IOHEXOL 300 MG/ML 75 ML VIAL. IV ONE (23:30)
[2021-03-24] MEDS ORDERED: KETOROLAC 30 MG/ML VIAL. IVP ONE (23:30)
[2021-03-24 23:44] LABS: BASO # 0.1 x10^3/uL (0.0-0.2); BASO % 1 % (0-3); EOS % 1 % (0-3); HEMATOCRIT 35.6 % (36.0-47.0); HEMOGLOBIN 11.3 g/dL (12.0-15.5); LYMPH # 5.5 x10^3/uL (1.0-4.8); LYMPH % 59 % (24-48); MEAN CORPUSCULAR HEMOGLOBIN 24 pg (25-35); MEAN CORPUSCULAR HGB CONC 32 g/dL (31-37); MEAN CORPUSCULAR VOLUME 76 fL (79-100); MONO # 0.7 x10^3/uL (0.0-1.1); MONO % 7 % (0-9); NEUT # 3.1 x10^3uL (1.8-7.7); NEUT % 33 % (31-73); PLATELET COUNT 190 x10^3/uL (140-400); RED BLOOD COUNT 4.67 x10^6/uL (3.50-5.40); RED CELL DISTRIBUTION WIDTH 16.3 % (11.5-14.5); WHITE BLOOD COUNT 9.4 x10^3/uL (4.0-11.0)
[2021-03-24] MEDS ORDERED: CONTRAST GIVEN. MC PRN (23:45)
--- NOTE | 2021-03-24 23:55 | RAD ---
XR ABDOMEN COMP ACUTE INDICATION: Abdomen pain COMPARISON STUDY: None. FINDINGS: Lungs: Normal lung volume. No pulmonary mass or consolidation. The tracheobronchial tree and hilar st ructures are normal. Pleura: No pleural effusion or pneumothorax. Heart and Mediastinum: The cardiomediastinal silhouette is normal. The great vessels of the thorax ar e normal. Abdomen: Nonobstructive bowel gas pattern. No free air. Moderate colonic stool burden. IMPRESSION: 1. No focal airspace disease. 2. Nonobstructive bowel gas pattern. 3. Moderate colonic stool burden. Electronically signed by: Dario Tamez MD (03/24/2021 11:53 PM) [facility]ITAL[facility]
[2021-03-25 00:01] LABS: CALCIUM 8.3 mg/dL (8.5-10.1); CREATININE 0.7 mg/dL (0.6-1.0); GFR 106.7; POTASSIUM 3.4 mmol/L (3.5-5.1)
[2021-03-25 00:08] LABS: ALBUMIN 3.5 g/dL (3.4-5.0); DIRECT BILIRUBIN 0.1 mg/dL (0.0-0.2); TOTAL BILIRUBIN 0.2 mg/dL (0.2-1.0); TOTAL PROTEIN 7.1 g/dL (6.4-8.2)
[2021-03-25] MEDS ORDERED: MAGNESIUM HYDROXIDE 2,400 MG/30 ML ORAL.SUSP. PO ONE (00:45)
--- NOTE | 2021-03-25 01:10 | RAD ---
CT ABDOMEN+PELVIS W History: Rt., lower abd pain Comparison: 02/02/2021 Technique: After administration of intravenous contrast, helical CT of the abdomen and pelvis was per formed from the lung bases through the ischial tuberosities. Coronal and sagittal reconstructions wer e obtained. 75 mL of Omnipaque 300 were used. One or more of the following dose reduction techniques were utilized: Automated exposure control (AEC), Adjustment of mA and/or kV according to patient size , Use of iterative reconstruction technique such as ASiR, CT scan done according to ALARA and image g ently/image wisely Abdomen Findings: The visualized lung bases are clear. The liver, gallbladder, pancreas, spleen, and bilateral adrenal glands are normal. Symmetric renal enhancement. Nonobstructive right renal 2 mm calculus. There is no hydronephrosis. The visualized loops of small bowel are normal. The visualized loops of large bowel are normal. There is no evidence of bowel obstruction. Appendix is normal. There is no mesenteric or retroperitoneal adenopathy. The abdominal aorta is normal in caliber. Pelvis Findings: Urinary bladder is normal. Retroflexed uterus. Conspicuous right adnexal probable corpus luteal cyst with moderate intermediate density fluid around the right adnexa and within the pelvis. There is no p elvic or inguinal adenopathy. There is no acute bony abnormality. IMPRESSION: Conspicuous right adnexal probable corpus luteal cyst with moderate amount of complex fluid around th e right adnexa and within the pelvis. Consider ruptured ovarian cyst. Electronically signed by: Dario Tamez MD (03/25/2021 1:07 AM) [facility]
[2021-03-25 01:52] VITALS: BP 100/54
== END 2021-03-25 01:55 | disposition home or self-care (01) ==
LOC: ER 22:31
DX: K59.00 Constipation, unspecified (principal); M19.90 Unspecified osteoarthritis, unspecified site; K50.90 Crohn's disease, unspecified, without complications
CPT/HCPCS: 36415; 74022; 74177; 80048; 80076; 81025; 82150; 82550; 83690; 85025; 85610; 85730; 87491; 87591; 96361; 96374; 96375; 99285; J1885; J2405; J3490; J7120; Q9967

== ENCOUNTER → 2021-03-24 | Outpatient (CLI) | payer OTHER ==
[2021-03-25 01:52] VITALS: BP 100/54
== END ==
LOC: LAB 14:30
PROVIDERS: ATTEND Internal Medicine Cardiovascular Disease
DX: Z20.822 Contact with and (suspected) exposure to COVID-19 (principal)
CPT/HCPCS: C9803; U0003

== ENCOUNTER → 2021-03-31 | Outpatient (CLI) | payer OTHER ==
[2021-03-25 01:52] VITALS: BP 100/54
== END ==
LOC: LAB 07:00
PROVIDERS: ATTEND Internal Medicine Cardiovascular Disease
DX: Z20.822 Contact with and (suspected) exposure to COVID-19 (principal)
CPT/HCPCS: U0003

== ENCOUNTER → 2021-04-07 | Outpatient (CLI) | payer OTHER ==
[2021-03-25 01:52] VITALS: BP 100/54
== END ==
LOC: LAB 10:08
PROVIDERS: ATTEND Internal Medicine Cardiovascular Disease
DX: Z20.822 Contact with and (suspected) exposure to COVID-19 (principal)
CPT/HCPCS: U0003

== ENCOUNTER → 2021-04-14 | Outpatient (CLI) | payer OTHER ==
[2021-03-25 01:52] VITALS: BP 100/54
== END ==
LOC: LAB 08:50
PROVIDERS: ATTEND Internal Medicine Cardiovascular Disease
DX: Z20.822 Contact with and (suspected) exposure to COVID-19 (principal)
CPT/HCPCS: U0003

== ENCOUNTER → 2021-04-17 | Outpatient (CLI) | payer OTHER ==
[2021-03-25 01:52] VITALS: BP 100/54
== END ==
LOC: LAB 18:23
PROVIDERS: ATTEND Internal Medicine Cardiovascular Disease
DX: R50.9 Fever, unspecified (principal); R06.02 Shortness of breath; J02.9 Acute pharyngitis, unspecified; R51.9 Headache, unspecified; R53.81 Other malaise; M79.10 Myalgia, unspecified site; Z20.822 Contact with and (suspected) exposure to COVID-19
CPT/HCPCS: U0003

== ENCOUNTER 2021-04-19 08:20 | Emergency (ER) | payer OTHER ==
[~2021-04-19] VITALS: Ht 157.5 cm; Wt 51.7 kg
--- NOTE | 2021-04-19 10:06 | PHYS DOC ---
Past History Past Medical History: Arthritis, Other Additional Past Medical Histor: crohn's disease Past Surgical History: No Surgical History Smoking: Non-smoker Alcohol Use: None Drug Use: None Adult General Chief Complaint Chief Complaint: MULTIPLE COMPLAINTS HPI HPI Patient is a 20 year old female who presents with multiple complaints. She states she feels very short of breath over the last couple of days. She has prior history of pneumonia and feels that she has had similar symptoms. That said, she denies fever or chills. She does complain of diffuse myalgias and headaches. She does appear very anxious and also endorses a prior history of anxiety. She reports she had some GI symptoms over the last 24 hours with 2 episodes of emesis yesterday. She feels nauseated but no ongoing vomiting today. Has been able to tolerate liquids. Denies abdominal pain. Her last period was less than 4 weeks earlier. Denies vaginal symptoms or urinary symptoms. Reports she had negative COVID test completed 2 days earlier. Does not have upper airway congestion or. Review of Systems Review of Systems Constitutional: Denies fever or chills Eyes: Denies change in visual acuity, redness, or eye pain HENT: Denies nasal congestion or sore throat Respiratory: Dyspnea as documented in HPI Cardiovascular: No additional information not addressed in HPI GI: As documented in HPI : Denies dysuria Musculoskeletal: Denies back pain or joint pain Integument: Denies rash or skin lesions Neurologic: Bitemporal headache and with history of migraines All other systems were reviewed and found to be within normal limits, except as documented in this note. Allergies Allergies Allergies Coded Allergies Type Severity Reaction Last Updated Verified No Known Drug Allergies 08/03/16 No Physical Exam Physical Exam Constitutional: Well developed, well nourished, no acute distress, non-toxic appearance HENT: Normocephalic, atraumatic, bilateral external ears normal, oropharynx moist, no oral exudates, nose normal. Eyes: PERRLA, EOMI, conjunctiva normal, no discharge. Neck: Normal range of motion Cardiovascular: Tachycardic heart rate, regular rhythm Lungs & Thorax: Bilateral breath sounds clear Abdomen: Bowel sounds normal, soft, no tenderness, no masses, no pulsatile masses. Skin: Warm, dry, no erythema, no rash Back: No tenderness, no CVA tenderness Extremities: No edema Neurologic: Alert and oriented X 3, normal motor function Psychologic: Affect normal Current Patient Data Vital Signs Vital Signs Date Time Temp Pulse Resp B/P (MAP) Pulse Ox O2 Delivery O2 Flow Rate FiO2 04/19/21 09:58 100.0 146 28 132/86 (101) 100 Room Air EKG EKG Sinus rhythm, tachycardia. Rate 130. No ST changes. Radiology/Procedures Radiology/Procedures [] Heart Score C/O Chest Pain: No Risk Factors: Risk Factors: DM, Current or recent (<one month) smoker, HTN, HLP, family history of CAD, obesity. Risk Scores: Risk Factors: DM, Current or recent (<one month) smoker, HTN, HLP, family history of CAD, obesity. Course & Med Decision Making Course & Med Decision Making Pertinent Labs and Imaging studies reviewed. (See chart for details) 10:10: Patient is evaluated on next arrival to her room. She is tachycardic and appears very anxious. She is hyperventilating. Her lungs are clear however with good air movement in all sosa. She has no other viral symptoms today. Her review of systems is tucker positive however. She complains of nausea. Today, we will place IV and check chest x-ray and labs and EKG. Her primary complaint is dyspnea and we will check a D-dimer as well. 16:00: Patient is currently much improved. Heart rate is 104. She feels improved. She continues to have oxygen saturation of 99% on room air. Work-up is positive for left side pneumonia. The diagnosis is explained to her all of her questions were answered. She does have elevated white blood cell count in the ER but lactate is not elevated. She received 2 L of NS total. Stable for discharge home. She was given Rocephin and the first dose of azithromycin in the ER. She is discharged home on the same medications. Strict return precautions are discussed and she will come back to the ER for any severely worsening symptoms or shortness of breath. Also discussed with her strict fever control with Tylenol and/or ibuprofen as needed. She is discharged home with prescription for Zofran as needed nausea, azithromycin, ibuprofen. Dragon Disclaimer Dragon Disclaimer This electronic medical record was generated, in whole or in part, using a voice recognition dictation system. Departure Departure: Impression: Primary Impression: Pneumonia Disposition: HOME / SELF CARE / HOMELESS Condition: IMPROVED Referrals: TANESHA UGALDE MD (PCP) Patient Instructions: Pneumonia, Adult Scripts Ondansetron (ONDANSETRON ODT) 4 Mg Tab.rapdis 1 TAB PO PRN Q6-8HRS, #16 TAB Prov: AMIRA BOWLING DO 04/19/21 Azithromycin (AZITHROMYCIN TABLET) 250 Mg Tablet 250 MG PO DAILY for ANTI-BIOTIC for 4 Days, #4 TAB 0 Refills Prov: AMIRA BOWLING DO 04/19/21 Ibuprofen (IBUPROFEN) 800 Mg Tablet 800 MG PO TID for 5 Days, #15 TAB Prov: AMIRA BOWLING DO 04/19/21 AMIRA BOWLING DO Apr 19, 2021 10:06
[2021-04-19] MEDS ORDERED: PROCHLORPERAZINE 10 MG/2 ML VIAL. IM ONE (10:45)
[2021-04-19] MEDS ORDERED: IV NORMAL SALINE 1,000ML 1,000 ML IV ONE ×2 (10:45→12:30)
[2021-04-19] MEDS ORDERED: diphenhydrAMINE 50 MG/ML VIAL IVP ONE (10:45)
[2021-04-19 11:07] LABS: BASO % 0 % (0-3); EOS % 0 % (0-3); HEMATOCRIT 39.5 % (36.0-47.0); HEMOGLOBIN 12.6 g/dL (12.0-15.5); LYMPH % 11 % (24-48); MEAN CORPUSCULAR HEMOGLOBIN 24 pg (25-35); MEAN CORPUSCULAR HGB CONC 32 g/dL (31-37); MEAN CORPUSCULAR VOLUME 76 fL (79-100); MONO # 1.3 x10^3/uL (0.0-1.1); MONO % 7 % (0-9); NEUT # 15.3 x10^3uL (1.8-7.7); NEUT % 82 % (31-73); PLATELET COUNT 202 x10^3/uL (140-400); RED BLOOD COUNT 5.22 x10^6/uL (3.50-5.40); RED CELL DISTRIBUTION WIDTH 15.8 % (11.5-14.5); WHITE BLOOD COUNT 18.6 x10^3/uL (4.0-11.0)
[2021-04-19 11:09] LABS: CALCIUM 8.8 mg/dL (8.5-10.1); CREATININE 0.9 mg/dL (0.6-1.0); GFR 79.8; POTASSIUM 3.1 mmol/L (3.5-5.1)
[2021-04-19 11:24] LABS: CLARITY,URINE HAZY; COLOR,URINE YELLOW; GLUCOSE,URINE NEG (NEG)
[2021-04-19 11:25] LABS: BACTERIA,URINE 0 /HPF (0-FEW); BILIRUBIN,URINE SMALL (NEG); NITRITE,URINE NEG (NEG); RBC,URINE OCC /HPF (0-2); SQUAMOUS EPITHELIAL CELL,UR FEW /LPF; UROBILINOGEN,URINE 0.2 mg/dL (0.2 mg/dL); WBC,URINE OCC /HPF (0-4)
[2021-04-19 11:55] LABS: % BANDS 22 % (0-9); % LYMPHS 9 % (24-48); % MONOS 8 % (0-10); % SEGS 61 % (35-66); TOXIC VACUOLATION PRESENT
[2021-04-19 11:56] LABS: PLT ESTIMATE ADEQUATE (ADEQUATE)
--- NOTE | 2021-04-19 12:25 | RAD ---
AP portable chest radiograph 04/19/2021 Clinical History: Shortness of breath. Chest pain. An AP erect portable digital radiograph of the chest was obtained. Comparison study is dated 03/24/2021. The cardiac and mediastinal silhouettes are within normal limits in size and configuration. Patchy le ft lower lobe infiltrate is seen. No pneumothorax or pleural effusion is noted. The osseous structure s are unchanged. Impression: Left lower lobe infiltrate. Electronically signed by: Brett Florence MD (04/19/2021 12:23 PM) [id number]
[2021-04-19] MEDS ORDERED: IOHEXOL 350 MG/ML 100 ML VIAL. IV ONE (12:45)
[2021-04-19] MEDS ORDERED: CONTRAST GIVEN. MC PRN (12:45)
[2021-04-19 12:48] LABS: U PREG PATIENT NEGATIVE (NEG)
[2021-04-19] MEDS ORDERED: AZITHROMYCIN 250 MG TABLET. PO ONE (13:00)
--- NOTE | 2021-04-19 13:06 | EKG ---
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
[2021-04-19] MEDS ORDERED: IV NORMAL SALINE 50ML 50 ML ONE (13:16)
[2021-04-19] MEDS ORDERED: cefTRIAXone SODIUM 1 GM VIAL ONE (13:16)
--- NOTE | 2021-04-19 13:33 | RAD ---
Examination: CT angiography chest with IV contrast HISTORY: History of dyspnea, elevated d-dimer COMPARISON: 08/03/2016 TECHNIQUE: Axial CT angiographic images of chest were performed with IV contrast. Coronal and sagitta l 3-D MIP reformats are performed. Exposure: One or more of the following individualized dose reduction techniques were utilized for th is examination: 1. Automated exposure control 2. Adjustment of the mA and/or kV according to patien t size 3. Use of iterative reconstruction technique FINDINGS: The visualized thyroid gland grossly appears unremarkable. The central airways are patent. The heart size grossly appears unremarkable. The caliber of the aorta grossly appears unremarkable There is no evidence of filling defect identified in the main pulmonary arterial trunk and right and left main pulmonary arteries and the visualized lobar, segmental branches. Large consolidation identi fied in the posterior aspect of the left lower lobe of the lung likely pneumonia. The liver, spleen, adrenals grossly appears unremarkable No evidence of lytic bony destructive lesion. IMPRESSION: 1. No evidence of pulmonary embolism. 2. Large consolidation identified in the posterior aspect of the left lower lobe of the lung likely pneumonia. Neoplasm is not excluded however considered less likely given the age. Follow-up to resolu tiosmin. Electronically signed by: Jarod Cowart MD (04/19/2021 1:30 PM) [id number]
[2021-04-19 13:45] LABS: INFLUENZA A PATIENT NEGATIVE (NEGATIVE); INFLUENZA B PATIENT NEGATIVE (NEGATIVE)
[2021-04-19] MEDS ORDERED: KETOROLAC 30 MG/ML VIAL. IVP ONE (13:45)
[2021-04-19] MEDS ORDERED: ACETAMINOPHEN 500 MG TABLET PO ONE (13:45)
[2021-04-19 15:10] VITALS: BP 106/65
[2021-04-19] MEDS ORDERED: ONDA4TAB12 PO ×2 (16:00→17:28)
[2021-04-19] MEDS ORDERED: IBUP800T19 PO ×2 (16:00→17:28)
[2021-04-19] MEDS ORDERED: AZIT250T6 PO (16:00)
[2021-04-19] MEDS ORDERED: AZIT500T4 PO (17:00)
== END 2021-04-19 17:36 | disposition home or self-care (01) ==
LOC: ER 08:20
DX: J18.9 Pneumonia, unspecified organism (principal); M19.90 Unspecified osteoarthritis, unspecified site; Z20.822 Contact with and (suspected) exposure to COVID-19
CPT/HCPCS: 36415; 71045; 71275; 80048; 81001; 81025; 83605; 84145; 85007; 85025; 85379; 87040; 93005; 96361; 96365; 96366; 96372; 96375; 99285; J0696; J0780; J1200; J1885; J3010; J7030; Q9967

== ENCOUNTER → 2021-04-28 | Outpatient (CLI) | payer OTHER ==
[2021-04-19 15:10] VITALS: BP 106/65
[~2021-04-28] MED LIST changes: +AZIT500T4 PO; +IBUP800T19 PO
== END ==
LOC: LAB 11:39
PROVIDERS: ATTEND Internal Medicine Cardiovascular Disease
DX: U07.1 COVID-19 (principal)
CPT/HCPCS: U0003

== ENCOUNTER → 2021-05-12 | Outpatient (CLI) | payer OTHER ==
[2021-04-19 15:10] VITALS: BP 106/65
--- NOTE | 2021-05-12 12:03 | RAD ---
Transabdominal transvaginal pelvic ultrasound. 05/12/2021 INDICATION: Pelvic pain. Last menstrual period May 02, 2021. No history of . COMPARISON: CT of the abdomen and pelvis March 25, 2021. TECHNIQUE: Transabdominal transvaginal pelvic ultrasound was performed. Static images are submitted t o PACS.. FINDINGS: The uterus is retroverted. Uterus measures 5.8 x 3 0.5 to 2.9 cm. Endometrial thickness is 0.2 cm. No focal masses, or abnormal fluid is identified. Trace free pelvic fluid noted, most commonl y physiologic in a premenopausal patient. The right ovary measures 4.2 x 1.6 x 1.6 cm. Left ovary measures 4.2 x 2.7 x 2.1 cm. Blood flow to juan th ovaries appear to be intact. Multiple grossly unremarkable ovary and follicles noted in both ovari es. IMPRESSION: Unremarkable sonographic appearance of the pelvis. Electronically signed by: Yariel Alcantar MD (05/12/2021 12:01 PM) [id number]
== END ==
LOC: US 11:03
PROVIDERS: ATTEND Physician Assistant Medical
DX: R10.2 Pelvic and perineal pain (principal)
CPT/HCPCS: 76830; 76856

== ENCOUNTER → 2021-07-07 | Outpatient (CLI) | payer OTHER | LOC: LAB 11:34 | PROVIDERS: ATTEND Nurse Practitioner Family | DX: R30.0 Dysuria (principal) | CPT/HCPCS: 87086 ==

== ENCOUNTER → 2021-07-09 | Outpatient (CLI) | payer OTHER ==
--- NOTE | 2021-07-09 13:53 | RAD ---
XR CHEST 2V INDICATION: COUGH, SOA . COMPARISON STUDY: 04/19/2021. FINDINGS: Lungs: Normal lung volume. No pulmonary mass or consolidation. The tracheobronchial tree and hilar st ructures are normal. Pleura: No pleural effusion or pneumothorax. Heart and Mediastinum: The cardiomediastinal silhouette is normal. The great vessels of the thorax ar e normal. Bones and Soft Tissues: The bones and soft tissues are within normal limits. IMPRESSION: No acute cardiopulmonary process. Electronically signed by: Dario Tamez MD (07/09/2021 1:51 PM) [id number]
== END ==
LOC: RAD 11:18
PROVIDERS: ATTEND Nurse Practitioner Family
DX: R07.89 Other chest pain (principal); R06.02 Shortness of breath
CPT/HCPCS: 71046